=== PATIENT | female | born 1950 | race Two or more races ===

== ENCOUNTER 2018-08-16 07:59 | Inpatient (IN) | payer OTHER ==
[~2018-08-16] VITALS: Ht 121.9 cm; Wt 69.4 kg
[~2018-08-16 07:59] MED LIST: LOSARTAN POTASS25 MG PO
[2018-08-20] MEDS ORDERED: DOCUSATE SODIU100 MG PO (10:40)
[2018-08-20] MEDS ORDERED: PERCOCET 5-3251 EACH PO (10:41)
[2018-08-20] MEDS ORDERED: CLONAZEPAM0.5 MG PO (10:41)
== END 2018-08-20 13:04 | disposition home or self-care (01) | DRG 454 ==
LOC: O/R 08-19 04:45 → RECOVERY 08-19 07:00 → SURH 08-19 10:49
PROVIDERS: ADMIT Orthopaedic Surgery Orthopaedic Surgery of the Spine
PROC: 0RG2071 Fusion of 2 or more Cervical Vertebral Joints with Autologous Tissue Substitute, Posterior Approach, Posterior Column, Open Approach (ICD-10-PCS; 2018-08-19)
PROC: 0RT30ZZ Resection of Cervical Vertebral Disc, Open Approach (ICD-10-PCS; 2018-08-19)
PROC: 07DS3ZZ Extraction of Vertebral Bone Marrow, Percutaneous Approach (ICD-10-PCS; 2018-08-19)
PROC: 4A12X4Z Monitoring of Cardiac Electrical Activity, External Approach (ICD-10-PCS; 2018-08-19)
PROC: 0RG20A0 Fusion of 2 or more Cervical Vertebral Joints with Interbody Fusion Device, Anterior Approach, Anterior Column, Open Approach (ICD-10-PCS; principal; 2018-08-19 07:00)
DX: M47.12 Other spondylosis with myelopathy, cervical region (principal); M50.01 Cervical disc disorder with myelopathy, high cervical region; I10 Essential (primary) hypertension; Z88.0 Allergy status to penicillin